=== PATIENT | male | born 1970 | race Caucasian/White ===

== ENCOUNTER 2018-08-27 09:08 | Inpatient (IN) | payer OTHER ==
[~2018-08-27] VITALS: Ht 180.3 cm; Wt 92.0 kg
[2018-08-27] MEDS ORDERED: ONDANSETRON ODT 4 MG PO ONE (09:30)
[2018-08-27] MEDS ORDERED: LORazepam 0.5MG TABLET PO ONE (09:30)
[2018-08-27] MEDS ORDERED: SERT100T PO (09:46)
--- NOTE | 2018-08-27 09:48 | NUR ---
PIV STARTED AND BLOOD DRAWN. PT TO XRAY AT THIS TIME.
[2018-08-27 09:55] LABS: BASOPHILS # (AUTO) 0.07 x10^3/uL (0-0.1); BASOPHILS % (AUTO) 1 % (0-1); EOSINOPHILS % (AUTO) 1 % (1-7); LYMPHOCYTES # (AUTO) 1.48 x10^3/uL (1-3.4); LYMPHOCYTES % (AUTO) 19 % (22-44); MD NO; MEAN CORPUSCULAR HEMOGLOBIN 31.8 pg (27.5-34.5); MEAN CORPUSCULAR HGB CONC 34.2 g/dL (33.2-36.2); MEAN CORPUSCULAR VOLUME 92.9 fL (81-97); MEAN PLATELET VOLUME 6.8 fL (7.4-10.4); MONOCYTES # (AUTO) 0.38 x10^3/uL (0.2-0.8); MONOCYTES % (AUTO) 5 % (2-9); NEUTROPHILS # (AUTO) 5.67 x10^3/uL (1.8-6.8); NEUTROPHILS % (AUTO) 74 % (42-75); PLATELET COUNT 276 x10^3/uL (130-400); RED BLOOD COUNT 5.15 x10^6/uL (4.38-5.82); RED CELL DISTRIBUTION WIDTH 12.8 % (9.4-14.8)
[2018-08-27] MEDS ORDERED: LORazepam 0.5MG TABLET ONE (09:59)
[2018-08-27] MEDS ORDERED: ONDANSETRON ODT 4 MG ONE (09:59)
[2018-08-27 10:04] LABS: CHLORIDE 107 mmol/L (98-107)
[2018-08-27 10:05] LABS: ALANINE AMINOTRANSFERASE 35 U/L (12-78); ALBUMIN 4.4 g/dL (3.4-5.0); ANION GAP 6 mmol/L (5-15); CALCIUM 9.3 mg/dL (8.5-10.1); CREATININE 1.16 mg/dL (0.7-1.3)
[2018-08-27 10:09] LABS: ALKALINE PHOSPHATASE 85 U/L (45-117); BILIRUBIN,TOTAL 0.5 mg/dL (0.2-1.0); TOTAL PROTEIN 7.8 g/dL (6.4-8.2)
[2018-08-27] MEDS ORDERED: ASPIRIN 325 MG TABLET PO STA (10:11)
[2018-08-27] MEDS ORDERED: ASPIRIN 325 MG TABLET ONE (10:27)
[2018-08-27] MEDS ORDERED: SODIUM CHLORIDE FLUSH 10ML SYR IVF ONE (10:30)
[2018-08-27] MEDS ORDERED: NITROGLYCERIN SINGLE TAB 0.4 MG SL PRN (10:30)
[2018-08-27] MEDS ORDERED: HEPARIN 5,000 UNITS/ML, 1ML IV ONE ×2 (10:30→11:00)
[2018-08-27] MEDS ORDERED: HEPARIN 5,000 UNITS/ML, 1ML IV PRN ×2 (10:30→11:00)
[2018-08-27] MEDS ORDERED: SODIUM CHLORIDE 0.9% 1,000ML IVBOLUS ONE (10:30)
[2018-08-27] MEDS ORDERED: HEPARIN 25,000 UNITS/500ML PMX 500 ML IV PRN ×2 (10:30→11:00)
--- NOTE | 2018-08-27 10:41 | NUR ---
PT MEDICATED WITH ASPIRIN. DR. AREVALO AT BEDSIDE.
[2018-08-27 10:44] LABS: INTERNATIONAL NORMALIZED RATIO 0.96 (0.93-1.1); PROTHROMBIN TIME 10.1 Seconds (9.6-11.5)
[2018-08-27] MEDS ORDERED: NITROGLYCERIN SINGLE TAB 0.4 MG SL ONE (10:45)
[2018-08-27] MEDS ORDERED: HEPARIN 25,000 UNITS/500ML PMX 500 ML ONE (10:45)
[2018-08-27] MEDS ORDERED: HEPARIN 5,000 UNITS/ML, 1ML ONE (10:46)
--- NOTE | 2018-08-27 10:52 | NUR ---
Cardiology at bedside.
[2018-08-27] MEDS ORDERED: FENTANYL PF 100 MCG/2ML ONE ×2 (11:09→11:58)
[2018-08-27] MEDS ORDERED: NITROGLYCERIN 5 MG/ML, 10ML ONE (11:09)
[2018-08-27] MEDS ORDERED: LIDOCAINE-MPF 1%, 5ML ONE (11:09)
[2018-08-27] MEDS ORDERED: MIDAZOLAM 1 MG/ML, 5ML ONE (11:09)
[2018-08-27] MEDS ORDERED: VERAPAMIL 2.5 MG/ML, 2ML ONE (11:09)
[2018-08-27] MEDS ORDERED: TICAGRELOR 90 MG TABLET ONE (11:09)
[2018-08-27] MEDS ORDERED: BIVALIRUDIN 250 MG ONE (11:09)
--- NOTE | 2018-08-27 11:10 | NUR ---
SECOND NITRO TAB GIVEN SL. PATIENT EXPERIENCED NO CHANGE IN CHEST PRESSURE AFTER FIRST TAB. BP PRIOR TO SECOND CXS=099/73. WILL CONTINUE TO MONITOR.
--- NOTE | 2018-08-27 11:22 | NUR ---
Patient to semiconductor lab technician.
[2018-08-27] MEDS ORDERED: NITROGLYCERIN 0.4 MG BOTTLE (25 TABS) SL PRN (11:30)
[2018-08-27] MEDS ORDERED: NITROGLYCERIN 0.4 MG/SPRAY SL PRN (11:30)
[2018-08-27] MEDS ORDERED: DIPHENHYDRAMINE 50 MG/ML, 1ML ONE (11:59)
[2018-08-27] MEDS ORDERED: SODIUM CHLORIDE 0.9% 1,000 ML IV SCH (12:32)
[2018-08-27 16:19] VITALS: BP 106/69
[2018-08-27] MEDS ORDERED: SERTRALINE 100MG TABLET PO SCH (21:00)
== END 2018-08-27 17:37 | disposition home or self-care (01) | DRG 281 ==
LOC: ED 10:26 → EDIP 11:02 → 5SO 12:27
PROVIDERS: ADMIT Internal Medicine Cardiovascular Disease; ATTEND Internal Medicine Cardiovascular Disease
PROC: 4A023N7 Measurement of Cardiac Sampling and Pressure, Left Heart, Percutaneous Approach (ICD-10-PCS; principal; 2018-08-27)
PROC: B2111ZZ Fluoroscopy of Multiple Coronary Arteries using Low Osmolar Contrast (ICD-10-PCS; 2018-08-27)
PROC: B2151ZZ Fluoroscopy of Left Heart using Low Osmolar Contrast (ICD-10-PCS; 2018-08-27)
DX: I21.4 Non-ST elevation (NSTEMI) myocardial infarction (principal); C18.9 Malignant neoplasm of colon, unspecified; F17.200 Nicotine dependence, unspecified, uncomplicated; Z82.49 Family history of ischemic heart disease and other diseases of the circulatory system; Z85.038 Personal history of other malignant neoplasm of large intestine; Z87.442 Personal history of urinary calculi
CPT/HCPCS: 0399T; 36415; 71046; 80053; 83735; 84100; 84484; 85025; 85520; 85610; 85730; 93005; 93306; 93458; 96360; 99156; C1769; C1894; G0378; J0583; J1644; J2250; J3010; Q0162; J1200; J7030; Q9967